=== PATIENT | male | born 1950 | race Caucasian/White ===

== ENCOUNTER 2017-05-27 12:41 | Day surgery (SDC) | payer BC ==
[2017-05-26 12:50] VITALS: BMI 25.8
[2017-05-27] MEDS ORDERED: CEFAZOLIN/Water 2 GM/20 ML SYRINGE ONE (13:23)
[2017-05-27] MEDS ORDERED: Ketorolac Tromethamine 30 MG/ML VIAL ONE (13:23)
[2017-05-27 13:41] LABS: #Basophils 0.1 thou/uL (0.0-0.2); #Eosinphils 0.1 thou/uL (0.0-0.7); #Lymphocytes 2.3 thou/uL (1.20-3.40); #Monocytes 0.4 thou/uL (0.11-0.59); #Neutrophils 3.2 thou/uL (1.40-6.50); %Basophils 0.8 % (0.0-1.0); %Eosinophils 2.4 % (0.0-10.0); %Lymphocytes 37.4 % (21.0-51.0); %Monocytes 6.2 % (0.0-10.0); Hematocrit 41.2 % (42.0-52.0); Mean Platelet Volume 7.5 fL (7.4-10.4); Red Blood Cell (RBC) Count 4.26 mill/uL (4.70-6.10); White Blood Cell (WBC) Count 6.1 thou/uL (4.8-10.8)
[2017-05-27 13:59] LABS: Anion Gap 8 mmol/L (10-20); BUN (Urea Nitrogen) 14 mg/dL (8.4-25.7); Calc. Creatinine Clearance 100 mL/min (70-130); Calcium 9.4 mg/dL (7.8-10.44); Carbon Dioxide 29 mmol/L (23-31); Chloride 108 mmol/L (98-107); Estimated GFR-MDRD 90
[2017-05-27] MEDS ORDERED: Lidocaine 2% w/Epinephrine 1:200K 20 ML VIAL ONE (14:07)
[2017-05-27] MEDS ORDERED: Bupivacaine 0.25% HCL 30 ML VIAL ONE (14:08)
[2017-05-27] MEDS ORDERED: Bupivacaine PF 0.5% 30 ML VIAL ONE (14:08)
[2017-05-27] MEDS ORDERED: Bupivacaine/Epinephrine 0.25% 30 ML VIAL ONE (14:15)
[2017-05-27] MEDS ORDERED: Midazolam HCl 2 mg/2 ml Vial ONE (14:56)
[2017-05-27] MEDS ORDERED: Fentanyl 100 MCG/2 ML VIAL ONE (14:56)
[2017-05-27] MEDS ORDERED: Metoclopramide HCl 10 MG/2 ML VIAL ONE (15:04)
[2017-05-27] MEDS ORDERED: PHENYLEPHRINE-NS 100 MCG/ML 10 ML SYRINGE ONE (15:04)
[2017-05-27] MEDS ORDERED: Dexamethasone 20 MG/5 ML VIAL ONE (15:04)
[2017-05-27] MEDS ORDERED: Lidocaine 1% PF 5 ML VIAL ONE (15:04)
[2017-05-27] MEDS ORDERED: Ondansetron HCl/PF 4 MG/2 ML Vial ONE (15:04)
[2017-05-27] MEDS ORDERED: diphenhydrAMINE 50 MG/ML VIAL ONE (15:04)
[2017-05-27] MEDS ORDERED: Propofol 200 MG/20 ML VIAL ONE (15:04)
--- NOTE | 2017-05-29 19:57 | OP ---
DATE OF OPERATION: 05/27/2017 PREOPERATIVE DIAGNOSIS: Left inguinal hernia. POSTOPERATIVE DIAGNOSIS: Left inguinal hernia, indirect. OPERATION PERFORMED: Open left inguinal hernia repair with a large mesh patch and plug. SURGEON: Faisal Kuhn M.D. ANESTHESIA: General endotracheal. INDICATIONS: The patient is a 67-year-old white male. He has a history of prior right inguinal becky ia repair. He presents at this time with left inguinal hernia and he was taken to the operating room at this time for repair. DESCRIPTION OF OPERATION: Informed consent was obtained. The patient was taken to the operating paola m where general anesthesia obtained with the patient in supine position. Left inguinal area was trim med of hair, prepped with ChloraPrep, and draped in sterile fashion. Local anesthetic was infiltrate d and oblique left inguinal incision was created. Dissection was carried through skin and subcutaneo us tissue down to the fascia. The fascia was incised parallel to its fibers so as to open the virologist al ring. The cord was dissected circumferentially and controlled with a [place] drain. The patient was noted to have 2 fairly large, but separate cord lipomas. These were each dissected from the cord structures and dissected back to the internal ring where they were transected with cautery and remov ed. Attention was then turned to the cord. There was an obvious indirect hernia sac. This was diss ected free from surrounding cord structures. There was no evidence of a direct inguinal hernia. A l arge mesh patch and plug was obtained and the apex of the plug was secured to the apex of the hernia sac and the complex was inverted in the preperitoneal space where the plug was secured to surrounding fascia with interrupted sutures of 2-0 Vicryl. Mesh patch was obtained, trimmed to appropriate size , and placed within the floor of the inguinal canal where it was secured in place with several interr upted sutures of 2-0 Vicryl. An ON-Q pain pump was obtained and tunneled into the incision from the superior entrance. It was pos itioned below the mesh. The fascia was then closed with a running suture of 3-0 Vicryl. Remainder o f the wound was closed with 3-0 and 4-0 Monocryl and Dermabond was placed externally. Dermabond was placed at the catheter exit site. Catheter was then coiled in the usual fashion and an occlusive francia ssing was placed over the catheter exit site. The catheter was attached to a bulb containing 120 mL of 0.5% plain Marcaine. There were no complications. The patient tolerated the procedure well and w as taken to recovery room in stable condition.
== END 2017-05-27 18:20 | disposition home or self-care (01) ==
LOC: SDC 12:41
PROVIDERS: ATTEND Specialist
PROC: 0YU60JZ Supplement Left Inguinal Region with Synthetic Substitute, Open Approach (ICD-10-PCS; principal; 2017-05-27)
DX: K40.90 Unilateral inguinal hernia, without obstruction or gangrene, not specified as recurrent (principal); D17.6 Benign lipomatous neoplasm of spermatic cord; J30.9 Allergic rhinitis, unspecified; I10 Essential (primary) hypertension; Z79.899 Other long term (current) drug therapy; Z88.1 Allergy status to other antibiotic agents; Z88.2 Allergy status to sulfonamides; Z98.890 Other specified postprocedural states
CPT/HCPCS: 36415; 80048; 85025; 93005; 93010; A4306; C1781; J0131; J1100; J1200; J1885; J2001; J2250; J2405; J2704; J2765; J3010; S0020